=== PATIENT | male | born 1960 | race Caucasian/White ===

== ENCOUNTER → 2017-05-17 | Outpatient (CLI) | payer BC ==
[2017-05-17 11:12] LABS: Basophils # (A) 0.1 k/uL (0-0.2); Basophils % (A) 1 %; CH 30.7; CHCM 33.2; Eosinophils # (A) 0.3 k/uL (0-0.7); Eosinophils % (A) 2 %; HDW 2.68; HGB 16.1 gm/dL (13.0-17.5); Luc # (Auto) 0.23; Luc % (Auto) 2; Lymphocytes # (A) 2.2 k/uL (1.0-4.8); Lymphocytes % (A) 16 %; MCH 30.7 pg (25.0-35.0); MCHC 32.9 g/dL (31.0-37.0); MCV 93.2 fL (80.0-100.0); Mean Platelet Volume 6.8; Monocytes # (A) 0.8 k/uL (0-1.0); Monocytes % (A) 6 %; Neutrophils % (A) 74 %; RBC 5.25 m/uL (4.30-5.90); RDW 13.6 % (11.5-15.5); WBC 13.5 k/uL (3.8-10.6); WBC (Perox) 13.32
[2017-05-17 11:42] LABS: ALT 60 U/L (21-72); AST 29 U/L (17-59); Alkaline Phosphatase 141 U/L (38-126); Anion Gap 11 mmol/L; Blood Urea Nitrogen 20 mg/dL (9-20); Calcium 9.7 mg/dL (8.4-10.2); Carbon Dioxide 26 mmol/L (22-30); Chloride 107 mmol/L (98-107); Cholesterol 131 mg/dL (<200); Creatine Kinase 109 U/L (55-170); Glucose 92 mg/dL (74-99); HDL Cholesterol 31 mg/dL (40-60); Non-African American GFR(MDRD) >60 (>60 ml/min/1.73 sqM); Potassium 5.8 mmol/L (3.5-5.1); Sodium 144 mmol/L (137-145); Total Bilirubin 0.4 mg/dL (0.2-1.3); Triglycerides 157 mg/dL (<150); Uric Acid 6.4 mg/dL (3.5-8.5)
[2017-05-17 11:46] LABS: Hemoglobin A1C 6.1 % (4.2-6.1)
[2017-05-17 12:10] LABS: Prostate Specific Antigen 9.46 ng/mL (0.00-4.00)
== END | disposition home or self-care (01) ==
LOC: LABWHC1 10:23
PROVIDERS: ATTEND Internal Medicine
DX: I10 Essential (primary) hypertension (principal); E23.0 Hypopituitarism; E55.9 Vitamin D deficiency, unspecified
CPT/HCPCS: 36415; 80053; 80061; 82306; 82550; 83036; 84153; 84403; 84550; 85025

== ENCOUNTER → 2017-05-29 | Outpatient (CLI) | payer BC | END | disposition home or self-care (01) | LOC: LABWHC1 08:50 | PROVIDERS: ATTEND Internal Medicine | DX: E87.5 Hyperkalemia (principal) | CPT/HCPCS: 36415; 84132 ==

== ENCOUNTER → 2019-07-14 | Outpatient (CLI) | payer BC ==
[2019-07-14 09:46] LABS: HCT 50.3 % (39.0-53.0); HGB 16.3 gm/dL (13.0-17.5); MCHC 32.3 g/dL (31.0-37.0); MCV 92.8 fL (80.0-100.0); Mean Platelet Volume 7.1; Platelet Count 242 k/uL (150-450); RBC 5.43 m/uL (4.30-5.90); RDW 13.6 % (11.5-15.5); WBC 10.1 k/uL (3.8-10.6)
[2019-07-14 16:49] LABS: African American GFR (CKD) 106.5 (60.0-200.0); Albumin 4.3 g/dL (3.80-4.90); Albumin/Globulin Ratio 2.53 (1.60-3.17); Calcium 9.1 mg/dL (8.7-10.3); Globulin 1.7 g/dL (1.6-3.3); Potassium 4.5 mmol/L (3.5-5.5); Total Bilirubin 0.6 mg/dL (0.2-1.2)
[2019-07-14 17:47] LABS: Hemoglobin A1C 5.8 % (4.0-6.0)
== END | disposition home or self-care (01) ==
LOC: LABWHC1 08:32
PROVIDERS: ATTEND Internal Medicine Cardiovascular Disease
DX: I25.10 Atherosclerotic heart disease of native coronary artery without angina pectoris (principal)
CPT/HCPCS: 36415; 80053; 83036; 83704; 85027

== ENCOUNTER → 2019-12-22 | Outpatient (CLI) | payer BC ==
--- NOTE | 2019-12-22 08:48 | US ---
EXAMINATION TYPE: US liver DATE OF EXAM: 12/22/2019 COMPARISON: NONE CLINICAL HISTORY: R94.5 ABN LIVER FUNCTIONS. elevated lft's, no symptoms, cholecystectomy EXAM MEASUREMENTS: Liver Length: 14.9 cm Gallbladder Wall: Surgically absent CBD: wnl cm Right Kidney: 11.8 x 4.2 x 5.4 cm Limited due to bowel gas Pancreas: not seen due to gas Liver: wnl Gallbladder: Surgically absent Evidence for sonographic Edwards's sign: no CBD: wnl Right Kidney: wnl IMPRESSION: 1. Normal right upper quadrant ultrasound
== END | disposition home or self-care (01) ==
LOC: RADUSWWP 07:24
PROVIDERS: ATTEND Internal Medicine
DX: R94.5 Abnormal results of liver function studies (principal)
CPT/HCPCS: 76705

== ENCOUNTER 2023-05-05 16:10 | Observation (INO) | payer BC ==
[2023-05-05] MEDS ORDERED: IPRATROPIUM-ALBUTEROL 3 ML NEB INHALATION STA (16:24)
[2023-05-05] MEDS ORDERED: methylPREDNISolone SOD SUCCI 125 MG/2 ML VIAL IV STA (16:24)
--- NOTE | 2023-05-05 16:27 | ED ---
URI HPI - General Chief Complaint: Upper Respiratory Infection Stated Complaint: Congestion Time Seen by Provider: 05/05/23 16:18 Source: patient Mode of arrival: ambulatory Limitations: no limitations - History of Present Illness Initial Comments: 62-year-old male presenting with chief complaint of dyspnea. He has had a cough and congestion ongoing for 4 days. 3 days ago he was seen in urgent care and prescribed Vibramycin and promethazine. States that he is continuing to have symptoms. He is a pack-a-day smoker. He is having chest pain with coughing. He admits to mild sore throat and nasal congestion. No nausea, vomiting, abdominal pain, palpitations, numbness, tingling, weakness. - Related Data Home Medications Medication Instructions Recorded Confirmed Aspirin EC [Ecotrin Low Dose] 81 mg PO HS 05/05/23 05/05/23 Atorvastatin [Lipitor] 80 mg PO DAILY 05/05/23 05/05/23 Doxycycline Hyclate 100 mg PO BID 05/05/23 05/05/23 Enalapril [Vasotec] 5 mg PO HS 05/05/23 05/05/23 Promethazine/Dextromethorphan 5 ml PO Q4H PRN 05/05/23 05/05/23 [Promethazine-Dm Syrup] carvediloL [Coreg] 6.25 mg PO BID 05/05/23 05/05/23 Allergies Allergy/AdvReac Type Severity Reaction Status Date / Time No Known Allergies Allergy Verified 05/05/23 20:08 Review of Systems ROS Statement: Those systems with pertinent positive or pertinent negative responses have been documented in the HPI. ROS Other: All systems not noted in ROS Statement are negative. Past Medical History Past Medical History: Hyperlipidemia, Hypertension History of Any Multi-Drug Resistant Organisms: None Reported Past Surgical History: Cholecystectomy, Heart Catheterization With Stent, Hernia Repair Smoking Status: Current every day smoker Past Alcohol Use History: Occasional Past Drug Use History: None Reported General Exam Limitations: no limitations General appearance: alert, in no apparent distress Head exam: Present: atraumatic, normocephalic, normal inspection Eye exam: Present: normal appearance Neck exam: Present: normal inspection, full ROM Respiratory exam: Present: wheezes. Absent: rales, rhonchi, stridor Cardiovascular Exam: Present: regular rate, normal rhythm, normal heart sounds. Absent: systolic murmur, diastolic murmur, rubs, gallop, clicks Neurological exam: Present: alert, oriented X3, CN II-XII intact Psychiatric exam: Present: normal affect, normal mood Skin exam: Present: warm, dry, intact, normal color. Absent: rash Course Vital Signs 05/05/23 05/05/23 05/05/23 16:11 16:14 16:52 Temperature 98.2 F Pulse Rate 100 90 Pulse Rate [ Pulse Oximetery ] Respiratory 20 22 22 Rate Blood Pressure 160/91 158/89 Blood Pressure [Right Arm] O2 Sat by Pulse 92 L 92 L Oximetry 05/05/23 05/05/23 05/05/23 17:13 17:22 18:32 Temperature Pulse Rate 98 99 97 Pulse Rate [ Pulse Oximetery ] Respiratory Rate Blood Pressure Blood Pressure [Right Arm] O2 Sat by Pulse Oximetry 05/05/23 05/05/23 05/05/23 18:47 20:20 20:26 Temperature Pulse Rate 99 101 H 97 Pulse Rate [ Pulse Oximetery ] Respiratory 24 Rate Blood Pressure 101/77 Blood Pressure [Right Arm] O2 Sat by Pulse 98 Oximetry 05/05/23 05/05/23 20:29 20:38 Temperature 98.3 F Pulse Rate 116 H Pulse Rate [ 95 Pulse Oximetery ] Respiratory 17 Rate Blood Pressure Blood Pressure 126/78 [Right Arm] O2 Sat by Pulse 94 L Oximetry Medical Decision Making - Medical Decision Making Was pt. sent in by a medical professional or institution (, PA, WATER LEAK REPAIRER, urgent care, hospital, or custodial...) When possible be specific @ -No Did you speak to anyone other than the patient for history (EMS, parent, family, police, friend...)? What history was obtained from this source @ -No Did you review nursing and triage notes (agree or disagree)? Why? @ -I reviewed and agree with nursing and triage notes Were old charts reviewed (outside hosp., previous admission, EMS record, old EKG, old radiological studies, urgent care reports/EKG's, custodial records)? Report findings @ -No old charts were reviewed Differential Diagnosis (chest pain, altered mental status, abdominal pain women, abdominal pain men, vaginal bleeding, weakness, fever, dyspnea, syncope, headache, dizziness, GI bleed, back pain, seizure, CVA, palpatations, mental health, musculoskeletal)? @ -MDM Differential Dyspnea: Coronary syndrome, arrhythmia, tamponade, asthma, COPD, pulmonary embolism, pneumonia, pneumothorax, pulmonary effusion, anaphylaxis, diabetic ketoacidosis, flailed chest, pulmonary contusion, diaphragmatic rupture, anemia, neuromuscular this is not meant to be an all-inclusive list. EKG interpreted by me (3pts min.). @ -As above X-rays interpreted by me (1pt min.). @ -chest X-ray shows COPD changes with no focal consolidation CT interpreted by me (1pt min.). @ -None done U/S interpreted by me (1pt. min.). @ -None done What testing was considered but not performed or refused? (CT, X-rays, U/S, labs)? Why? @ -None What meds were considered but not given or refused? Why? @ -None Did you discuss the management of the patient with other professionals (professionals i.e. , PA, WATER LEAK REPAIRER, lab, RT, psych nurse, social sciences department chair, home furnishings sales representative, teacher, contract officer, nurse case manager)? Give summary @ -Spoke with Dr. Ornelas who accepted admission Was smoking cessation discussed for >3mins.? @ -No Was critical care preformed (if so, how long)? @ -No Were there social determinants of health that impacted care today? How? (Homelessness, low income, unemployed, alcoholism, drug addiction, transportation, low edu. Level, literacy, decrease access to med. care, [facility], rehab)? @ -No Was there de-escalation of care discussed even if they declined (Discuss DNR or withdrawal of care, Hospice)? DNR status @ -No What co-morbidities impacted this encounter? (DM, HTN, Smoking, COPD, CAD, Cancer, CVA, ARF, Chemo, Hep., AIDS, mental health diagnosis, sleep apnea, morbid obesity)? @ -Smoker Was patient admitted / discharged? Hospital course, mention meds given and route, prescriptions, significant lab abnormalities, going to OR and other pertinent info. @ -62-year-old male presenting with chief complaint of cough and shortness of breath. Currently being treated with promethazine and doxycycline as an outpatient. He is a pack per day smoker. On physical examination there are diffuse wheezes throughout the lung vasquez. No leukocytosis or anemia. He is negative for influenza, RSV, and Covid. Chest x-ray shows COPD changes with no focal consolidation. After Solu-Medrol 125 and 2 breathing treatments patient continues to be wheezy on exam. Patient will be admitted for suspected COPD exacerbation. Patient is agreeable with this plan. I discussed this case with my attending Dr. Armas Undiagnosed new problem with uncertain prognosis? @ -No Drug Therapy requiring intensive monitoring for toxicity (Heparin, Nitro, Insulin, Cardizem)? @ -No Were any procedures done? @ -No Diagnosis/symptom? @ -COPD exacerbation Acute, or Chronic, or Acute on Chronic? @ -Acute on chronic Uncomplicated (without systemic symptoms) or Complicated (systemic symptoms)? @ -Complicated Side effects of treatment? @ -No Exacerbation, Progression, or Severe Exacerbation? @ -No Poses a threat to life or bodily function? How? (Chest pain, USA, PA, pneumonia, PE, COPD, DKA, ARF, appy, cholecystitis, CVA, Diverticulitis, Homicidal, Suici sarina, threat to staff... and all critical care pts) @ -yes - Lab Data Result diagrams: 05/05/23 16:24 05/05/23 16:24 Lab Results 05/05/23 05/05/23 05/05/23 Range/Units 16:24 16:24 16:24 WBC 8.2 (3.8-10.6) k/uL RBC 5.16 (4.30-5.90) m/uL Hgb 16.6 (13.0-17.5) gm/dL Hct 48.3 (39.0-53.0) % MCV 93.7 (80.0-100.0) fL MCH 32.1 (25.0-35.0) pg MCHC 34.3 (31.0-37.0) g/dL RDW 13.6 (11.5-15.5) % Plt Count 155 (150-450) k/uL MPV 7.6 Neutrophils % 68 % Lymphocytes % 12 % Monocytes % 11 % Eosinophils % 6 % Basophils % 1 % Neutrophils # 5.6 (1.3-7.7) k/uL Lymphocytes # 0.9 L (1.0-4.8) k/uL Monocytes # 0.9 (0-1.0) k/uL Eosinophils # 0.5 (0-0.7) k/uL Basophils # 0.1 (0-0.2) k/uL PT 10.8 (9.0-12.0) sec INR 1.0 (<1.2) APTT 30.7 H (22.0-30.0) sec Sodium 138 (137-145) mmol/L Potassium 4.5 (3.5-5.1) mmol/L Chloride 104 (98-107) mmol/L Carbon Dioxide 27 (22-30) mmol/L Anion Gap 7 mmol/L BUN 19 (9-20) mg/dL Creatinine 0.95 (0.66-1.25) mg/dL Est GFR (CKD-EPI)AfAm >90 (>60 ml/min/1.73 sqM) Est GFR (CKD-EPI)NonAf 85 (>60 ml/min/1.73 sqM) Glucose 108 H (74-99) mg/dL Plasma Lactic Acid Luiz (0.7-2.0) mmol/L Calcium 8.7 (8.4-10.2) mg/dL Total Bilirubin 0.8 (0.2-1.3) mg/dL AST 35 (17-59) U/L ALT 35 (4-49) U/L Alkaline Phosphatase 133 H (38-126) U/L Troponin I (0.000-0.034) ng/mL Total Protein 6.9 (6.3-8.2) g/dL Albumin 4.1 (3.5-5.0) g/dL Influenza Type A (PCR) (Not Detectd) Influenza Type B (PCR) (Not Detectd) RSV (PCR) (Not Detectd) SARS-CoV-2 (PCR) (Not Detectd) 05/05/23 05/05/23 05/05/23 Range/Units 16:24 16:24 16:24 WBC (3.8-10.6) k/uL RBC (4.30-5.90) m/uL Hgb (13.0-17.5) gm/dL Hct (39.0-53.0) % MCV (80.0-100.0) fL MCH (25.0-35.0) pg MCHC (31.0-37.0) g/dL RDW (11.5-15.5) % Plt Count (150-450) k/uL MPV Neutrophils % % Lymphocytes % % Monocytes % % Eosinophils % % Basophils % % Neutrophils # (1.3-7.7) k/uL Lymphocytes # (1.0-4.8) k/uL Monocytes # (0-1.0) k/uL Eosinophils # (0-0.7) k/uL Basophils # (0-0.2) k/uL PT (9.0-12.0) sec INR (<1.2) APTT (22.0-30.0) sec Sodium (137-145) mmol/L Potassium (3.5-5.1) mmol/L Chloride (98-107) mmol/L Carbon Dioxide (22-30) mmol/L Anion Gap mmol/L BUN (9-20) mg/dL Creatinine (0.66-1.25) mg/dL Est GFR (CKD-EPI)AfAm (>60 ml/min/1.73 sqM) Est GFR (CKD-EPI)NonAf (>60 ml/min/1.73 sqM) Glucose (74-99) mg/dL Plasma Lactic Acid Luiz 0.9 (0.7-2.0) mmol/L Calcium (8.4-10.2) mg/dL Total Bilirubin (0.2-1.3) mg/dL AST (17-59) U/L ALT (4-49) U/L Alkaline Phosphatase (38-126) U/L Troponin I <0.012 (0.000-0.034) ng/mL Total Protein (6.3-8.2) g/dL Albumin (3.5-5.0) g/dL Influenza Type A (PCR) Not Detected (Not Detectd) Influenza Type B (PCR) Not Detected (Not Detectd) RSV (PCR) Not Detected (Not Detectd) SARS-CoV-2 (PCR) Not Detected (Not Detectd) - EKG Data -: EKG Interpreted by Me EKG Comments: Sinus rhythm ventricular rate 96. TX interval 168. QRS 90. QT 336. QTc 389. There is borderline right axis deviation. Disposition Clinical Impression: COPD exacerbation Disposition: ADMITTED IP TO THIS HOSP Condition: Fair Time of Disposition: 19:31
[2023-05-05 16:54] LABS: Basophils # (A) 0.1 k/uL (0-0.2); Basophils % (A) 1 %; Eosinophils # (A) 0.5 k/uL (0-0.7); Eosinophils % (A) 6 %; HCT 48.3 % (39.0-53.0); HGB 16.6 gm/dL (13.0-17.5); Lymphocytes # (A) 0.9 k/uL (1.0-4.8); Lymphocytes % (A) 12 %; MCH 32.1 pg (25.0-35.0); MCHC 34.3 g/dL (31.0-37.0); MCV 93.7 fL (80.0-100.0); Mean Platelet Volume 7.6; Monocytes # (A) 0.9 k/uL (0-1.0); Monocytes % (A) 11 %; Neutrophils # (A) 5.6 k/uL (1.3-7.7); Neutrophils % (A) 68 %; Platelet Count 155 k/uL (150-450); RBC 5.16 m/uL (4.30-5.90); RDW 13.6 % (11.5-15.5); WBC 8.2 k/uL (3.8-10.6)
[2023-05-05 17:05] LABS: ALT 35 U/L (4-49); AST 35 U/L (17-59); African American GFR (CKD) >90 (>60 ml/min/1.73 sqM); Albumin 4.1 g/dL (3.5-5.0); Alkaline Phosphatase 133 U/L (38-126); Anion Gap 7 mmol/L; Blood Urea Nitrogen 19 mg/dL (9-20); Calcium 8.7 mg/dL (8.4-10.2); Carbon Dioxide 27 mmol/L (22-30); Chloride 104 mmol/L (98-107); Glucose 108 mg/dL (74-99); Non-African American GFR(CKD) 85 (>60 ml/min/1.73 sqM); Potassium 4.5 mmol/L (3.5-5.1); Sodium 138 mmol/L (137-145); Total Bilirubin 0.8 mg/dL (0.2-1.3); Total Protein 6.9 g/dL (6.3-8.2)
[2023-05-05 17:18] LABS: Partial Thromboplastin Time 30.7 sec (22.0-30.0); Prothrombin Time 10.8 sec (9.0-12.0)
--- NOTE | 2023-05-05 17:26 | XR ---
EXAMINATION TYPE: XR chest 2V DATE OF EXAM: 05/05/2023 COMPARISON: 05/29/2013 HISTORY: 62 year-old male shortness of breath, cough, difficulty breathing TECHNIQUE: PA and lateral views FINDINGS: Heart normal size. Aorta and pulmonary vasculature within normal limits. Mild hyperinflation. Interst itial prominence. There is peribronchial cuffing and mild right perihilar density. No miguel angel consolida tion or pleural effusion. IMPRESSION: COPD. Peribronchial cuffing could reflect superimposed acute bronchitis.
[2023-05-05] MEDS ORDERED: ALBUTEROL NEBULIZED 2.5 MG/3 ML INHALATION STA (17:56)
[2023-05-05] MEDS ORDERED: NALOXONE 0.4 MG/ML 1 ML VIAL IV PRN (19:26)
[2023-05-05] MEDS ORDERED: IPRATROPIUM-ALBUTEROL 3 ML NEB INHALATION PRN (19:27)
[2023-05-05] MEDS ORDERED: ACETAMINOPHEN TAB 325 MG TAB PO PRN (20:10)
[2023-05-05] MEDS: DOXYCYCLINE 100 MG CAP PO SCH (20:14)
[2023-05-05] MEDS: IPRATROPIUM-ALBUTEROL 3 ML NEB INHALATION SCH (20:19)
[2023-05-05] MEDS: methylPREDNISolone SOD SUCCI 125 MG/2 ML VIAL IV SCH (22:34)
--- NOTE | 2023-05-06 03:49 | P.CNPUL ---
History of Present Illness Consult date: 05/06/23 Requesting physician: Rosi Mckeon Reason for consult: COPD Chief complaint: Shortness of breath, chest tightness, chest congestion History of present illness: I am seeing this patient in consultation 05/06/2023 for a suspected acute COPD exacerbation. Patient is a 62-year-old white male with past medical history significant for coronary artery disease, myocardial infarction with heart ca theterization and stents 2, hypertension, hyperlipidemia, hernia with repair, and states that he quit smoking approximately 5 days ago. Prior to this, he was a one pack per day smoker for over 40 years. He denies any history of COPD or asthma. His primary care provider is Dr. Ornelas. Patient reports symptoms of shortness of breath, chest tightness, and persistent nonproductive cough that started about four days ago. The was preceded by URI like symptoms. Reports subjective fevers especially at night. Denies any chest pain, significant sputum production, or hemoptysis. Denies sick contacts. He was seen at urgent care clinic approximately 3 days ago and was started on a course of doxycycline, without improvement in his symptoms. Patient came to the emergency room yesterday afternoon for the above-stated complaints. He is currently sitting up in bed, on room air, in no acute distress. Lungs sounds are very wheezy on auscultation. Chest x-ray on arrival showed mild hyperinflation consistent with COPD. There was peribronchial cuffing and mild right perihilar density no miguel angel consolidation or pleural effusion. CBC on arrival was unremarkable. No leukocytosis. BMP was also unremarkable. Negative for influenza, RSV, COVID- 19. Currently on a combination of DuoNeb's and IV site Medrol. Patient was started on empiric doxycycline. Currently afebrile. Appears nontoxic and vital signs are stable. Review of Systems REVIEW OF SYSTEMS: CONSTITUTIONAL: Denies any recent significant weight loss or weight gain. EYES: Denies change in vision. EARS, NOSE, MOUTH, THROAT: Denies headaches, denies sore throat. CARDIOVASCULAR: Denies chest pain, palpitations or syncopal episodes. RESPIRATORY: See HPI GASTROINTESTINAL: Denies change in appetite, abdominal pain, nausea and vomiting, or diarrhea GENITOURINARY: Denies hematuria, denies infections. MUSKULOSKELETAL: Denies pain, denies swelling. INTEGUMENTARY: Denies rash, denies eczema. NEUROLOGICAL: Denies recent memory loss, no recent seizure activity. PSYCHIATRIC: Denies anxiety, denies depression. HEMATOLOGIC/LYMPHATIC: Denies anemia, denies enlarged lymph node Past Medical History Past Medical History: Hyperlipidemia, Hypertension History of Any Multi-Drug Resistant Organisms: None Reported Past Surgical History: Cholecystectomy, Heart Catheterization With Stent, Hernia Repair Additional Past Surgical History / Comment(s): x2 stents 14 years ago Date of Last Stent Placement:: 14 years ago Smoking Status: Current every day smoker Past Alcohol Use History: Occasional Past Drug Use History: None Reported Medications and Allergies Home Medications Medication Instructions Recorded Confirmed Type Aspirin EC [Ecotrin Low Dose] 81 mg PO HS 05/05/23 05/05/23 History Atorvastatin [Lipitor] 80 mg PO DAILY 05/05/23 05/05/23 History Doxycycline Hyclate 100 mg PO BID 05/05/23 05/05/23 History Enalapril [Vasotec] 5 mg PO HS 05/05/23 05/05/23 History Promethazine/Dextromethorphan 5 ml PO Q4H PRN 05/05/23 05/05/23 History [Promethazine-Dm Syrup] carvediloL [Coreg] 6.25 mg PO BID 05/05/23 05/05/23 History Allergies Allergy/AdvReac Type Severity Reaction Status Date / Time No Known Allergies Allergy Verified 05/05/23 20:08 Physical Exam Vitals: Vital Signs Temp Pulse Pulse Resp BP BP Pulse Ox 05/05/23 22:45 16 05/05/23 20:38 98.3 F 95 17 126/78 94 L 05/05/23 20:29 116 H 05/05/23 20:26 97 24 101/77 98 05/05/23 20:20 101 H 05/05/23 18:47 99 05/05/23 18:32 97 05/05/23 17:22 99 05/05/23 17:13 98 05/05/23 16:52 22 05/05/23 16:14 90 22 158/89 92 L 05/05/23 16:11 98.2 F 100 20 160/91 92 L Intake and Output 05/05/23 05/05/23 05/06/23 14:59 22:59 06:59 Other: # Voids 1 Weight 86.183 kg GENERAL EXAM: Alert, 62-year-old white male appearing stated age, comfortable in no apparent distress. HEAD: Normocephalic and atraumatic EYES: Normal reaction of pupils, equal size. NOSE: Clear with pink turbinates. THROAT: No erythema or exudates. NECK: No masses, no JVD. CHEST: No chest wall deformity. LUNGS: Equal air entry with bilateral expiratory wheezing. No crackles, rhonchi or focal dullness. On room air. No conversational dyspnea or accessory muscle use.. CVS: S1 and S2 normal with no audible murmur, regular rhythm. No extra heart sounds ABDOMEN: No hepatosplenomegaly, active bowel sounds, no guarding or rigidity. SPINE: No scoliosis or deformity SKIN: No rashes CENTRAL NERVOUS SYSTEM: No focal deficits, tone is normal in all 4 extremities. EXTREMITIES: There is no peripheral edema, clubbing, or cyanosis. Peripheral pulses are intact. Results - Laboratory Findings CBC and BMP: 05/05/23 16:24 05/05/23 16:24 PT/INR, D-dimer PT 10.8 sec (9.0-12.0) 05/05/23 16:24 INR 1.0 (<1.2) 05/05/23 16:24 Abnormal lab findings: Abnormal Labs 05/05/23 05/05/23 05/05/23 16:24 16:24 16:24 Lymphocytes # 0.9 L APTT 30.7 H Glucose 108 H Alkaline Phosphatase 133 H - Diagnostic Findings Chest x-ray: image reviewed Assessment and Plan Assessment: Likely acute COPD exacerbation secondary to acute bronchitis. Chest x-ray shows no evidence of focal consolidation or pneumonia. There was peribronchial cuffing consistent with bronchitis. Negative for influenza, RSV, COVID-19. Coronary artery disease History of [place] with heart catheterization and stents x 2 Benign essential hypertension Hyperlipidemia Chronic nicotine dependence, quitting approximately 5 days ago. Has over a [id number] history. Plan: Patient's medications, labs, chest x-ray reviewed On room air Continue bronchodilators and IV Solu-Medrol Start Symbicort inhaler Continue empiric antibiotics Check procalcitonin level Start Robitussin-DM for persistent nonproductive cough Smoking cessation counseling performed Nicotine replacement offered We will continue to follow I have personally seen and examined the patient, performed the documentation and the assessment and plan as written. Number of minutes spent on the visit:20 Time with Patient: Greater than 30
[2023-05-06] MEDS: methylPREDNISolone SOD SUCCI 125 MG/2 ML VIAL IV SCH (05:57)
[2023-05-06] MEDS ORDERED: guaiFENesin-DM 100-10MG/5ML 10 ML CUP PO SCH (06:00)
[2023-05-06] MEDS ORDERED: SYMBICORT 160-4.5 MCG INHALER INHALATION SCH (08:00)
[2023-05-06 08:04] VITALS: BP 128/80; RESP 18; TEMP 98.3
[2023-05-06] MEDS: DOXYCYCLINE 100 MG CAP PO SCH (08:45)
[2023-05-06] MEDS ORDERED: NICOTINE 21MG/24HR PATCH TRANSDERM SCH (09:00)
[2023-05-06] MEDS: IPRATROPIUM-ALBUTEROL 3 ML NEB INHALATION SCH ×2 (09:19→12:29)
[2023-05-06 12:43] VITALS: PULSE 102
--- NOTE | 2023-06-05 20:21 | P.HPIM ---
History of Present Illness H&P Date: 05/06/23 Chief Complaint: Shortness of breath. History and Physical and discharge Summary HISTORY OF PRESENT ILLNESS: This is a 62-year-old male one of my patient with a previous radical history significant for hypertension and hypertensive cardiovascular disease, hyperlipidemia, coronary artery disease status post PCI of the LAD back in 2005 enlarged prostate status post TURP, chronic tobacco use and dependence, patient has not been seen in the office for the past 2 years, has been following regularly with Dr. Germain from cardiology, patient presented to the emergency department at [facility] today with increased shortness of breath,and he was admitted for acute exacerbation of COPD and he was started on Solu-Medrol 60mg IVP q 6 hours along with Doxycycline 100 mg po bid and was placed on O2 and Duoneb 3 ml Nebulization 4 times a day, patient was seen by Pulmonary Medicine and patient was feeling fine , so he decided to go home and follow up as outpatient. REVIEW OF SYSTEMS: Constitutional: No documented fever, no chills, no night sweats. No weight change. No weakness, fatigue or lethargy. No daytime sleepiness. HEENT: No headache. No blurred vision or double vision, no loss of vision. No loss of Hearing, no ringing in the ears, no dizziness. No nasal drainage or congestion. No epistaxis. No sore throat. Lungs:positive for shortness of breath, positive for cough, occasional sputum production. positive for wheezing. Reports dyspnea with activity. Cardiovascular: No chest pain, no lower extremity edema. No palpitations. No paroxysmal nocturnal dyspnea. No orthopnea. No lightheadedness or dizziness. No syncopal episodes. Abdominal: Reports abdominal pain. No nausea, vomiting. No diarrhea. No constipation. No bloody or tarry stools reports loss of appetite, positive for heartburn Genitourinary: No dysuria, increased frequency, urgency. No urinary retention. Musculoskeletal: No myalgias. No muscle weakness, no gait dysfunction, no frequent falls. No back pain. No neck pain. Integumentary: No wounds, no lesions. No rash or pruritus. No unusual bruising. No change in hair or nails. Neurologic: No aphasia. No facial droop. No change in mentation. No head injury. No headache. No paralysis. No paresthesia. Psychiatric: No depression. No anxiety. No mood swings. Endocrine: No abnormal blood sugars. No weight change. PAST MEDICAL HISTORY: CAD post-PCI of the LAD 2005 Hypertension and hypertensive cardiovascular disease Hyperlipidemia. Osteoarthritis. Enlarged prostate. GERD. PAST SURGICAL HISTORY: Left heart catheterization with PCI of the LAD 2005 Cholecystectomy. Bilateral hernia repair. Umbilical hernia repair. TURP January 2021. SOCIAL HISTORY: Patient continued to smoke about a pack every day he started smoking when he was a teenager, he denies any alcohol ingestion, no drug use or abuse. FAMILY HISTORY: Father at age of 66 from lung cancer mother at age of 72 from congestive heart failure patient has 4 sisters one son 2 daughters no major medical problems. PHYSICAL EXAMINATION: General: 62-year-old male laying down in bed in mild respiratory distress HEENT: Head is atraumatic, normocephalic, pupils were equal round reactive to light and recommendation, extraocular muscle movement were intact, sclera nonicteric, conjunctivae were pale, mucous membranes of the mouth are somewhat dry. Neck: Supple, no JVP, normal carotid upstroke bilaterally, no lymphadenopathy. Chest: Decreased breath sounds at the bases, few rhonchi, minimal expiratory wheezes, no chest wall tenderness, no intercostal retractions. Heart: First heart sound is normal, second heart sounds normal there is no gallop or murmur. Abdomen: Soft, nontender, nondistended, positive bowel sounds. Extremities: There is no edema no calf tenderness DP +2 bilaterally. Neurologic examination: Patient is awake alert and oriented x3, cranial nerves II-12 appear grossly intact, muscle power were 5 out of 5 in upper extremities and 5 out of 5 in bilateral lower extremities, deep tendon reflexes normal bilaterally. ASSESSMENT AND PLAN: 1. Acute hypoxemic respiratory failure due to acute exacerbation of COPD. Continue Solu-Medrol 60 mg IV push every 6 hours, DuoNeb 3 mg nebulization 4 times every day, continue Symbicort 160/4.5 g 2 puffs inhalation twice every day, monitor the patient very closely, pulmonary consultation appreciated. 2. Acute bronchitis. Continue doxycycline 100 mg orally twice every day. 3. Chronic tobacco use and dependence. Smoking cessation and counseling an increased risk of CAD, CVA and malignancy. Continue nicotine patch 21 mg once every day. 4. Coronary artery disease status post PCI of the LAD 2005. Continue aspirin 81 mg once every day, atorvastatin 80 mg once every day, carvedilol 6.25 mg orally twice every day, monitor the patient very closely. Has been following up with cardiology Dr. Germain on the regular basis he did have a stress test last year 5. Hypertension and hypertensive cardiovascular disease. Continue patient on carvedilol 6.25 mg orally twice every day, continue Enalapril 5 mg orally once every day, monitor the patient blood pressure very closely. 6. Hyperlipidemia. Continue atorvastatin 80 mg once every day, monitor the patient lipid panel, keep LDL 55-70. 7. Enlarged prostate status post TURP. Better. 8. DVT prophylaxis. Lovenox 40 mg subcutaneously every 24 hours 9. GI prophylaxis. Continue Protonix 40 mg orally once every day. 10.Patient is feeling good and he wanted to go home and follow uo with as outpatient. 11. Patient was cleared for discharge from Pulmonary and he will follow up with me in 3 days and in 1 week 12. Smoking cessation and counseling. Past Medical History Past Medical History: Hyperlipidemia, Hypertension History of Any Multi-Drug Resistant Organisms: None Reported Past Surgical History: Cholecystectomy, Heart Catheterization With Stent, Hernia Repair Additional Past Surgical History / Comment(s): x2 stents 14 years ago Date of Last Stent Placement:: 14 years ago Smoking Status: Current every day smoker Past Alcohol Use History: Occasional Past Drug Use History: None Reported Medications and Allergies Home Medications Medication Instructions Recorded Confirmed Type Aspirin EC [Ecotrin Low Dose] 81 mg PO HS 05/05/23 05/07/23 History Atorvastatin [Lipitor] 80 mg PO DAILY 05/05/23 05/07/23 History Doxycycline Hyclate 100 mg PO BID 05/05/23 05/07/23 History Enalapril [Vasotec] 5 mg PO HS 05/05/23 05/07/23 History carvediloL [Coreg] 6.25 mg PO BID 05/05/23 05/07/23 History Budesonide-Formot 160-4.5 Mcg 2 puff INHALATION RT-BID #1 each 05/06/23 05/07/23 Rx [Symbicort 160-4.5 Mcg Inhaler] Nicotine 21Mg/24Hr Patch [Habitrol] 1 patch TRANSDERM DAILY #30 patch 05/06/23 05/07/23 Rx guaiFENesin-DM 100-10MG/5ML 10 ml PO Q6HR ml 05/06/23 05/07/23 Rx [Robitussin DM] Albuterol Sulfate [Proventil Hfa] 1 puff INHALATION RT-Q6H PRN 05/07/23 05/07/23 History predniSONE See Taper PO DIRECTED 05/07/23 05/07/23 History Ipratropium-Albuterol Nebulize 3 ml INHALATION RT-QID #120 each 05/10/23 Rx [Duoneb 0.5 mg-3 mg/3 ml Soln] Allergies Allergy/AdvReac Type Severity Reaction Status Date / Time No Known Allergies Allergy Verified 05/07/23 06:59 Physical Exam Vitals: Vital Signs Temp Pulse Pulse Resp BP BP Pulse Ox 05/06/23 07:00 98.3 F 100 18 128/80 91 L 05/06/23 02:37 97.8 F 98 17 136/84 97 05/05/23 22:45 16 05/05/23 20:38 98.3 F 95 17 126/78 94 L 05/05/23 20:29 116 H 05/05/23 20:26 97 24 101/77 98 05/05/23 20:20 101 H 05/05/23 18:47 99 05/05/23 18:32 97 05/05/23 17:22 99 05/05/23 17:13 98 05/05/23 16:52 22 05/05/23 16:14 90 22 158/89 92 L 05/05/23 16:11 98.2 F 100 20 160/91 92 L Intake and Output 05/05/23 05/06/23 05/06/23 22:59 06:59 14:59 Other: # Voids 1 2 Weight 86.183 kg Results CBC & Chem 7: 05/05/23 16:24 05/05/23 16:24 Labs: Abnormal Lab Results - Last 24 Hours (Table) 05/05/23 05/05/23 05/05/23 Range/Units 16:24 16:24 16:24 Lymphocytes # 0.9 L (1.0-4.8) k/uL APTT 30.7 H (22.0-30.0) sec Glucose 108 H (74-99) mg/dL Alkaline Phosphatase 133 H (38-126) U/L Thrombosis Risk Factor Assmnt - Choose All That Apply Any of the Below Risk Factors Present?: Yes Each Factor Represents 1 point: Abnormal pulmonary function (COPD), Obesity (BMI >25) Other Risk Factors: Yes Each Risk Factor Represents 2 Points: Age 61-74 years Other congenital or acquired thrombophilia - If yes, enter type in comment: No Thrombosis Risk Factor Assessment Total Risk Factor Score: 4 Thrombosis Risk Factor Assessment Level: Moderate Risk
== END 2023-05-06 13:00 | disposition home or self-care (01) ==
LOC: EC 16:10 → 6NMEDSUR 20:33
PROVIDERS: ADMIT Internal Medicine; ATTEND Internal Medicine
DX: J44.1 Chronic obstructive pulmonary disease with (acute) exacerbation (principal); J96.01 Acute respiratory failure with hypoxia; J44.0 Chronic obstructive pulmonary disease with (acute) lower respiratory infection; J20.9 Acute bronchitis, unspecified; I25.10 Atherosclerotic heart disease of native coronary artery without angina pectoris; I11.9 Hypertensive heart disease without heart failure; E78.5 Hyperlipidemia, unspecified; M19.90 Unspecified osteoarthritis, unspecified site; K21.9 Gastro-esophageal reflux disease without esophagitis; N40.0 Benign prostatic hyperplasia without lower urinary tract symptoms; E66.9 Obesity, unspecified; Z68.27 Body mass index [BMI] 27.0-27.9, adult; F17.210 Nicotine dependence, cigarettes, uncomplicated; Z20.822 Contact with and (suspected) exposure to COVID-19; Z71.6 Tobacco abuse counseling; I25.2 Old myocardial infarction; Z79.51 Long term (current) use of inhaled steroids; Z79.82 Long term (current) use of aspirin; Z79.899 Other long term (current) drug therapy; Z95.5 Presence of coronary angioplasty implant and graft; Z90.49 Acquired absence of other specified parts of digestive tract; Z90.79 Acquired absence of other genital organ(s); Z98.890 Other specified postprocedural states; Z82.49 Family history of ischemic heart disease and other diseases of the circulatory system; Z80.1 Family history of malignant neoplasm of trachea, bronchus and lung
CPT/HCPCS: 96376 ×2; 96374; 99284; 36415; 94640 ×4; 94760; 93005; 80053; 83605; 84484; 85025; 85610; 85730; 84145; 87636; 71046; G0378 ×2; S4990; J2930 ×2

== ENCOUNTER → 2023-11-28 | Outpatient (CLI) | payer BC, MEDICARE ==
--- NOTE | 2023-11-28 16:37 | CTL ---
EXAMINATION TYPE: CT Low Dose Lung DATE OF EXAM: 11/28/2023 4:10 PM CLINICAL INDICATION:Male, 63 years old with history of Z12.2 ENCNTR SCREEN FOR MALIGNANT NEOPLAS, Z8 7.891; Former smoker, quit x8mo. 2PPD x30yrs. , history of tobacco use. COMPARISON: 05/09/2023. TECHNIQUE: Multiple axial non-contrast scans were obtained from approximately the lung apices through the upper abdomen. Coronal and sagittal reformatted images were obtained. Low dose technique was uti lized. CT DLP: 101.5 mGycm, Automated exposure control for dose reduction was used. CT Contrast: Contrast used: None Oral contrast used: None FINDINGS: ======== Lack of intravenous contrast and low dose technique limits the evaluation of the vascular and soft ti ssue structures. LUNGS: No evidence of pulmonary fibrosis. No evidence of focal consolidation, pneumothorax or pleural effusion. Centrilobular and paraseptal emphysema changes throughout the lungs. Nodules: RUL: None. RML: None. RLL: None. JORDANA: None. LLL: None. AIRWAY: Patent and unremarkable. HEART: Size within normal limits. Mild coronary artery atherosclerosis. MEDIASTINUM: No gross evidence of adenopathy. VASCULATURE: No aortic aneurysm. MUSCULOSKELETAL: No acute osseous abnormalities SOFT TISSUES/LYMPH NODES: Unremarkable. LOWER NECK: No significant findings. UPPER ABDOMEN: Cholecystectomy clips are present. IMPRESSION: 1. No clinically significant pulmonary nodules. 2. Mild to moderate emphysema changes. CT LUNG RAD AND CT CHEST RECOMMENDATION: Lung-Rad 1 Negative: Continue annual screening with LDCT in 12 months. S Modifier (other clinically significant findings): None Recommend smoking cessation (if current smoker), or continuation of smoking cessation (if prior smoke r). Annual screening for lung cancer with low-dose computed tomography is recommended in adults ages 55 to 77 years who have a 30 pack-year smoking history and currently smoke or have quit within the pa st 15 years. Screening should be discontinued once a person has not smoked for 15 years or develops a health problem that substantially limits life expectancy or the ability or willingness to have curat gabby lung surgery. Lung rads 2021 [email or web address]
== END | disposition home or self-care (01) ==
LOC: RADCTMAIN 14:29
PROVIDERS: ATTEND Internal Medicine
DX: Z12.2 Encounter for screening for malignant neoplasm of respiratory organs (principal); J45.909 Unspecified asthma, uncomplicated; Z87.891 Personal history of nicotine dependence
CPT/HCPCS: 71271

== ENCOUNTER → 2025-01-18 | Outpatient (CLI) | payer MEDICARE ==
[2025-01-18 15:17] LABS: ALT 31 U/L (10-49); AST 22 U/L (14-35); Chol/HDL Ratio 4.66 Ratio; LDL Cholesterol,Calculated 86.6 mg/dL (0.0-131.0)
== END | disposition home or self-care (01) ==
LOC: LABWHC1 08:27
PROVIDERS: ATTEND Internal Medicine
DX: E78.2 Mixed hyperlipidemia (principal)
CPT/HCPCS: 36415; 80061; 84450; 84460

== ENCOUNTER → 2025-02-03 | Outpatient (CLI) | payer MEDICARE ==
--- NOTE | 2025-02-03 12:17 | CTL ---
EXAMINATION TYPE: CT Low Dose Lung DATE OF EXAM ORDERED: 02/03/2025 COMPARISON: CT Low Dose Lung 11/28/2023 CLINICAL INDICATION: Male, 64 years old with history of Z12.2 SCREENING F87.891 FORMER SMOKER; [facility], S creening for lung cancer, former smoker, Lung cancer screening, History of Smoking/tobacco use. TECHNIQUE: Low dose computed tomography scan was performed through the chest at 1 mm thick sections a nd reconstructed images in multiple planes at 1 mm and [address] DLP: [address] CTDI: 2.07 mGy Automated exposure control for dose reduction was used. CT DIAGNOSTIC QUALITY: Satisfactory FINDINGS: Nodules: No clinically significant pulmonary nodules. LUNGS: COPD: Severity: Mild centrilobular and paraseptal emphysematous changes. Fibrosis: Severity: None Lymph nodes: None Other findings: None RIGHT PLEURAL SPACE: Effusion: None Calcification: None Thickening: None Pneumothorax: None LEFT PLEURAL SPACE: Effusion: None Calcification: None Thickening: None Pneumothorax: None HEART: Heart Size: Normal Coronary Calcification: Moderate along the LAD. Pericardial Effusion: None OTHER FINDINGS: Upper abdomen: Gallbladder is surgically absent. Bony thorax: Multilevel anterior osteophytosis. Supraclavicular region: None Other: Mild atherosclerotic calcification of the aorta and its branches. IMPRESSION: 1. No clinically significant pulmonary nodules. 2. Mild emphysematous changes. CT LUNG RAD AND CT CHEST RECOMMENDATION: Lung-Rad 1 Negative: Continue annual screening with LDCT in 12 months. S Modifier (other clinically significant findings): None [facility], , 02/03/2025 12:15 PM
== END | disposition home or self-care (01) ==
LOC: RADCTMAIN 10:17
PROVIDERS: ATTEND Internal Medicine
DX: Z12.2 Encounter for screening for malignant neoplasm of respiratory organs (principal); J43.2 Centrilobular emphysema; Z87.891 Personal history of nicotine dependence
CPT/HCPCS: 71271